=== PATIENT | male | born 1950 | race Caucasian/White ===

== ENCOUNTER → 2017-03-24 | Outpatient (CLI) | payer OTHER | END | disposition home or self-care (01) | LOC: NUC 03-17 08:00 | DX: R93.8 Abnormal findings on diagnostic imaging of other specified body structures (principal); E21.3 Hyperparathyroidism, unspecified; Z86.018 Personal history of other benign neoplasm | CPT/HCPCS: 78072; A9500; A9512 ==

== ENCOUNTER 2017-04-02 10:24 | Emergency (ER) | payer OTHER ==
[~2017-04-02] VITALS: Ht 170.2 cm; Wt 67.6 kg
[2017-04-02 11:13] LABS: EOSINOPHIL (%) 0 % (0-5); HEMATOCRIT 37.3 % (38.0-50.0); IMMATURE GRANULOCYTE (%) 0.4 % (0.0-0.7); IMMATURE GRANULOCYTE COUNT 0.1 K/uL; INSTRUMENT ABS NEUTROPHIL CT 11.2 K/uL; LYMPHOCYTE COUNT 0.8 K/uL (1.0-2.8); MCH 26.9 PG (29.0-34.0); MCHC 32.7 G/DL (30.0-36.0); MCV 82.2 FL (86-99); MEAN PLAT.VOLUME 10.4 uM^3 (9.0-12.4); MONOCYTE (%) 11.3 % (3-12); MONOCYTE COUNT 1.5 K/uL (0-0.8); NEUTROPHIL (%) 82.1 % (45-76); NEUTROPHIL COUNT 11.2 K/uL (1.8-6.4); PLATELET COUNT 218 K/uL (156-360); RBC DIS.WIDTH-CV 13.1 % (11.8-14.6); RBC DIS.WIDTH-SD 39.4 % (39-53); RED BLOOD COUNT 4.54 M/uL (4.00-5.50); WHITE BLOOD COUNT 13.6 K/uL (4.1-10.2)
[2017-04-02 11:23] LABS: CHLORIDE 106 mEq/L (99-109); POTASSIUM 4.1 mEq/L (3.7-5.4); SODIUM 140 mEq/L (136-147)
[2017-04-02 11:24] LABS: GLUCOSE 115 mg/dL (70-99)
[2017-04-02 11:26] LABS: ANION GAP 11 MEQ/L (2-14)
[2017-04-02 11:28] LABS: GFR ESTIMATE (CALCULATED) 34 mL/min/
[2017-04-02 11:29] LABS: UREA NITROGEN (BUN) 31 mg/dL (9-23)
[2017-04-02 12:28] LABS: ADD MIUA? YES; BILIRUBIN NEGATIVE; BLOOD LARGE; COLOR YELLOW ((YELLOW)); GLUCOSE (STRIP) NEGATIVE; KETONES NEGATIVE; LEUKOCYTES LARGE; NITRITE POSITIVE; PROTEIN (STRIP) 100; UROBILINOGEN 0.2 MG/DL (0.2-1.0)
[2017-04-02 12:46] LABS: UCUL ADDED? YES; WHITE BLOOD CELLS TNTC /HPF (0-5)
[2017-04-02] MEDS ORDERED: CIPRO500 MG PO (13:24)
[2017-04-02 14:09] VITALS: BP 130/77
== END 2017-04-02 14:18 | disposition home or self-care (01) ==
LOC: EME 10:24
PROVIDERS: Physician Assistant Medical
PROC: 0T9B70Z Drainage of Bladder with Drainage Device, Via Natural or Artificial Opening (ICD-10-PCS; principal; 2017-04-02)
DX: N32.0 Bladder-neck obstruction (principal); R50.9 Fever, unspecified; E78.5 Hyperlipidemia, unspecified; Z87.442 Personal history of urinary calculi; Z88.6 Allergy status to analgesic agent
CPT/HCPCS: 80048; 81003; 83605; 85025; 87040; 87086; 87502; 93005; 99281; 99285; J1956; J7030